=== PATIENT | female | born 1985 | race Caucasian/White ===

== ENCOUNTER 2017-10-23 08:54 | Inpatient (IN) | payer OTHER ==
[~2017-10-23] VITALS: Ht 170.2 cm; Wt 83.8 kg
[~2017-10-23 08:54] MED LIST: ACET1TAB40 PO; CLIN-73 PO; IBUP-1542 PO
[2017-10-23 09:06] VITALS: Ht 170.2 cm; Wt 83.8 kg
[2017-10-23 09:07] VITALS: BP 135/82; PULSE 83; RESP 18
--- NOTE | 2017-10-23 09:20 | TRIAGE ---
OB Triage Datetime Report Generated by CPN: 10/23/2017 09:19 Datetime: 10/23/2017 09:10 Vaginal Exam Dilatation (cms): 3.0 Effacement (%): 80 Station: -2 Exam By: [facility] Membrane Status: Ruptured Membranes Rupture Method: Spontaneous Amniotic Fluid Color: Clear Amniotic Fluid Amount: Moderate Amniotic Fluid Odor: None Vaginal Bleeding: None Nitrazine: Positive Cervix, Consistency: Soft Cervix, Position: Midposition Datetime: 10/23/2017 09:04 Assessment Type: Triage Maternal Assessment Level of Consciousness: Fully Conscious DTR's/Clonus: DTRs 2+; No Clonus Headache: Denies Blurred Vision: No Respiratory Effort: Unlabored; Regular Rhythm; Equal Expansion Breath Sounds, Left: Clear and Equal Breath Sounds, Right: Clear and Equal Nausea/Vomiting: Denies RUQ Epigastric Pain: Denies Lower Extremities Edema: None Degree: None Upper Extremities Edema: None Degree: None Facial Edema: None Fall Risk Assessment History of Falling: (0) No Secondary Diagnosis: (0) No Ambulatory Aid: (0) Bedrest/Nurse Assist IV Therapy: (0) No Gait: (0) Normal/Bedrest/Immobile Mental Status: (0) Oriented to Own Ability Fall Score: 0 Fall Risk Score Definition: No Risk: No action required Datetime: 10/23/2017 09:03 Time of Arrival: 10/23/2017 08:51 EGA: 40.3 Arrived By: Ambulatory Arrived From: Home Chief Complaint: PT HERE C/O SROM SINCE 0650 Movement: Present Contractions: Irregular Rupture of Membranes: Unsure Vaginal Bleeding: None Vaginal Discharge: Denies Recent Sexual Intercouse: Denies Abdominal Trauma: Not Applicable Patient Complaints: Contractions; Cramping; Back Pain Time Provider Notified: 10/23/2017 09:15 Provider Notified: LEANDRA Initial Plan: EFM/SVE Datetime: 10/23/2017 08:59 Labor Evaluation Monitor Mode: External Heart Rate Monitor Mode: External US
[2017-10-23] MEDS ORDERED: CARBOPROST 250 MCG INJ IM PRN ×2 (09:30→17:30)
[2017-10-23] MEDS ORDERED: LACTATED RINGER'S 1,000 ML IV PRN (09:30)
[2017-10-23] MEDS ORDERED: BUTORPHANOL 2 MG INJ IV PRN (09:30)
[2017-10-23] MEDS ORDERED: IBUPROFEN 600 MG TAB PO PRN (09:30)
[2017-10-23] MEDS ORDERED: OXYTOCIN 30 UNITS/LR 500 ML IV SCH ×2 (09:30)
[2017-10-23] MEDS ORDERED: LIDOCAINE 1% (MPF) 30 ML INJ INJ PRN (09:30)
[2017-10-23] MEDS ORDERED: METHYLERGONOVINE 0.2 MG INJ IM PRN ×2 (09:30→17:30)
[2017-10-23] MEDS ORDERED: MISOPROSTOL 200 MCG TAB PR PRN ×2 (09:30→17:30)
[2017-10-23] MEDS ORDERED: OXYTOCIN 30 UNITS/LR 500 ML IV PRN ×2 (09:30→17:30)
[2017-10-23] MEDS: LACTATED RINGER'S 1,000 ML IV SCH ×2 (10:35→11:55)
[2017-10-23 10:40] LABS: BASOPHILS % 0.4 % (0.0-2.0); EOSINOPHILS % 0.2 % (0.0-7.0); HEMATOCRIT 33.5 % (37.0-47.0); HEMOGLOBIN 10.9 g/dl (12.0-16.0); LYMPHOCYTES # 1.7 10^3/ul (0.8-2.9); LYMPHOCYTES % 17.6 % (15.0-51.0); MEAN CORPUSCULAR HEMOGLOBIN 28.6 pg (29.0-33.0); MEAN CORPUSCULAR HGB CONC 32.5 g/dl (32.0-37.0); MEAN CORPUSCULAR VOLUME 87.9 fl (82.0-101.0); MEAN PLATELET VOLUME 10.2 fl (7.4-10.4); MONOCYTE # 0.7 10^3/ul (0.3-0.9); MONOCYTES % 7.3 % (0.0-11.0); NEUTROPHIL # 7.2 10^3/ul (1.6-7.5); NEUTROPHILS % 74.2 % (39.0-77.0); PLATELET COUNT 407 10^3/UL (140-415); RED BLOOD COUNT 3.81 10^6/ul (4.20-5.40); RED CELL DISTRIBUTION WIDTH 13.2 % (11.5-14.5); WHITE BLOOD COUNT 9.6 10^3/ul (4.8-10.8)
[2017-10-23 11:00] LABS: INR 0.91; PROTIME 12.2 Sec (12.2-14.2)
[2017-10-23 11:01] LABS: PARTIAL THROMBOPLASTIN TIME 28.2 Sec (25.0-35.0)
[2017-10-23] MEDS ORDERED: FENTAnyl 2MCG/ML-ROPIV 0.2% 100 ML ONE (11:52)
[2017-10-23] MEDS ORDERED: EPHEDrine SULFATE 50 MG/5 ML SYG IV PRN (12:30)
[2017-10-23] MEDS ORDERED: FENTAnyl 2MCG/ML-ROPIV 0.2% 100 ML BAG EPI SCH (12:30)
[2017-10-23] MEDS ORDERED: DIPHENHYDRAMINE 50 MG INJ IV PRN (12:30)
[2017-10-23] MEDS ORDERED: ONDANSETRON 4 MG INJ IV PRN (12:30)
[2017-10-23] MEDS ORDERED: NALOXONE (0.4 MG/ML) INJ IV PRN (12:30)
--- NOTE | 2017-10-23 12:43 | HP ---
Date/Time of Note Date/Time of Note DATE: 10/23/17 TIME: 12:34 OB - History Hx of Present Free Text/Dictation 32 y.o [id number] came in labor after SROM at 0650 VE 3/-2 had unevenful care admitted for expectant management Chief Complaint: srom with uc's Estimated Due Date: Oct 20, 2017 : 4 Para: 3 Spontaneous : 0 Therapeutic : 0 Care: Good Care Ultrasounds: Normal mid trimester US Obstetrical Complications: None Medical Complications: None Past Family/Social History * Past Medical, Surgical, Family and Obstetric Histories reviewed from chart. Blood Type: A+ Rubella: immune RPR/VDRL: Negative GBS Status: Negative HBsAG: Negative OB Admission Exam Vital Signs Vital Signs Vital Signs Date Time Temp Pulse Resp B/P Pulse Ox O2 Delivery O2 Flow Rate FiO2 10/23/17 09:07 98.0 83 18 135/82 95 Room Air Physical Exam HEENT: WNL Heart: Rhythm Normal Lungs: Clear, Equal Abdomen: WNL Extremities: Normal Reflexes: Normal Cervical Dilatation: 3cm Effacement: Other (80%) Station: -2 Membranes: Ruptured Amniotic Fluid: Clear Heart Rate: 130's Accelerations: Accelerations Present Decelerations: No Decelerations Varibility: Moderate Contractions on Admission: < 5 Minutes Apart Intensity: Mild Last 72 hours Lab Results CBC & BMP 10/23/17 10:10 OB Assessment/Plan Reason for admission: rupture of membranes Other Assessment: IUP 40w3d in labor with SROM Plan: Expectant Management Other plan: poss augmentation CHAIM MOBLEY MD Oct 23, 2017 12:43
[2017-10-23 12:50] LABS: ALBUMIN 3.5 g/dl (3.3-4.9); ALBUMIN/GLOBULIN RATIO 1.02; BILIRUBIN,INDIRECT 0.3 mg/dl (0-1.1); BILIRUBIN,TOTAL 0.3 mg/dl (0.2-1.3); CALCIUM 8.6 mg/dl (8.4-10.2); CREATININE 0.61 mg/dl (0.44-1.00); POTASSIUM 4.1 mmol/L (3.5-5.1); TOTAL PROTEIN 6.9 g/dl (6.1-8.1)
[2017-10-23] MEDS ORDERED: PREN-6 PO (14:47)
[2017-10-23 15:22] LABS: ADD UMIC NO; UR ASCORBIC ACID NEGATIVE (NEGATIVE); UR BILIRUBIN (Dip) NEGATIVE (NEGATIVE); UR BLOOD (Dip) NEGATIVE (NEGATIVE); UR CLARITY CLEAR (CLEAR); UR COLOR YELLOW (YELLOW); UR GLUCOSE (Dip) NEGATIVE (NEGATIVE); UR KETONES (Dip) NEGATIVE (NEGATIVE); UR LEUKOCYTE ESTERASE (Dip) NEGATIVE Leu/ul (NEGATIVE); UR NITRITE (Dip) NEGATIVE (NEGATIVE); UR SPECIFIC GRAVITY (Dip) 1.015 (1.003-1.030); UR TOTAL PROTEIN (Dip) NEGATIVE (NEGATIVE); UR UROBILINOGEN (Dip) NEGATIVE (NEGATIVE)
--- NOTE | 2017-10-23 16:08 | LDN ---
Date/Time of Note Date/Time of Note DATE: 10/23/17 TIME: 16:05 Delivery Summary Weeks of Gestation 40w3d Placenta Delivered: Spontaneously Meconium: none Episiotomy: No Perineal laceration: 1 Laceration repair: 000ch gut Anesthesia type: Epidural Estimated blood loss: 100 Sponge & Needle done & correct: Yes All needle counts correct: Yes Any foreign bodies felt in the: No Problems: Infant Delivery Information Sex Infant Sex: male Apgars 1 Minute: 9 5 Minute: 9 Suctioning Nose & mouth suctioned at vilma: Yes Delee suction performed: No Umbilical Cord Umbilical cord with: 3 Vessels Cord presentations: no nuchal cord Cord Blood was obtained: Yes Mother & Baby Disposition Disposition Mom & Baby to Maternity; Good: Yes Mom transferred to: Other Baby to NICU: No () CHAIM MOBLEY MD Oct 23, 2017 16:08
[2017-10-23] MEDS ORDERED: ZOLPIDEM 5 MG TAB PO PRN (17:30)
[2017-10-23] MEDS ORDERED: WITCH HAZEL/GLYCERIN PAD PR PRN (17:30)
[2017-10-23] MEDS ORDERED: LANOLIN 7 GM TUBE TOP PRN (17:30)
[2017-10-23] MEDS ORDERED: OXYCODONE/ASPIRIN (4.88/325) TAB PO PRN ×2 (17:30)
[2017-10-23] MEDS ORDERED: BENZOCAINE 20% 56 ML SPRAY TOP PRN (17:30)
[2017-10-23 17:40] VITALS: BP 125/67; PULSE 76; RESP 18
[2017-10-23] MEDS: IBUPROFEN 600 MG TAB PO SCH (18:30)
[2017-10-23] MEDS: SENNA/DOCUSATE NA (8.6MG/50MG) TAB PO SCH (20:49)
[2017-10-23 21:49] VITALS: BP 117/64; RESP 18
[2017-10-24] VITALS: PULSE 69; RESP 18
[2017-10-24] MEDS: IBUPROFEN 600 MG TAB PO SCH ×4 (00:08→17:33)
[2017-10-24 04:30] VITALS: BP 109/65; PULSE 68; RESP 18
[2017-10-24 08:30] VITALS: BP 121/58; PULSE 74; RESP 18
[2017-10-24 09:01] LABS: BASOPHILS % 0.2 % (0.0-2.0); EOSINOPHILS # 0.1 10^3/ul (0.0-0.5); EOSINOPHILS % 0.6 % (0.0-7.0); HEMATOCRIT 29.3 % (37.0-47.0); HEMOGLOBIN 9.8 g/dl (12.0-16.0); LYMPHOCYTES # 1.9 10^3/ul (0.8-2.9); MEAN CORPUSCULAR HEMOGLOBIN 29.3 pg (29.0-33.0); MEAN CORPUSCULAR HGB CONC 33.4 g/dl (32.0-37.0); MEAN CORPUSCULAR VOLUME 87.5 fl (82.0-101.0); MEAN PLATELET VOLUME 10.4 fl (7.4-10.4); MONOCYTE # 0.8 10^3/ul (0.3-0.9); MONOCYTES % 8.1 % (0.0-11.0); NEUTROPHIL # 6.6 10^3/ul (1.6-7.5); NEUTROPHILS % 70.7 % (39.0-77.0); PLATELET COUNT 340 10^3/UL (140-415); RED BLOOD COUNT 3.35 10^6/ul (4.20-5.40); RED CELL DISTRIBUTION WIDTH 13.1 % (11.5-14.5); WHITE BLOOD COUNT 9.4 10^3/ul (4.8-10.8)
[2017-10-24] MEDS: SENNA/DOCUSATE NA (8.6MG/50MG) TAB PO SCH ×2 (10:33→21:09)
[2017-10-24 16:00] VITALS: BP 126/81; PULSE 69; RESP 16
[2017-10-24 19:55] VITALS: BP 105/66; PULSE 72; RESP 18
--- NOTE | 2017-10-24 22:50 | PN ---
Date/Time of Note Date/Time of Note DATE: 10/24/17 TIME: 22:49 OB Subjective Subjective Subjective no c/o no bm OB Objective Objective Objective vss afebrile fundus firm lochia min calf neg for tenderness OB Assessment/Plan Other Assessment: stable Other plan: d/s home in am CHAIM MOBLEY MD Oct 24, 2017 22:50
[2017-10-25] MEDS: IBUPROFEN 600 MG TAB PO SCH ×3 (00:14→12:09)
[2017-10-25 04:05] VITALS: BP 124/80; PULSE 61; RESP 16
--- NOTE | 2017-10-25 05:37 | PD.PPDC ---
MANAGER PEST Discharge Instruction Diagnosis Final Diagnosis: s/p normal vaginal delivery Condition Patient Condition: Stable Diet Diet: Resume Regular Diet Activity/Restrictions Activity: May Shower Restrictions: No Lifting No Sexual Activity Nothing in the Vagina No [place] No Tampons, douche Follow-up Follow-up with Physician: 6, Week/Weeks Return to clinic for CAMPAIGN SPECIALIST Instructions: Fever greater than 101 Chills Worsening abdominal pain Excessive Vaginal Bleeding More than 2 pads per hour Unable to tolerate diet OB Instructions: Breast Tenderness Depression Blurried Vision Headache CHAIM MOBLEY MD Oct 25, 2017 05:37
--- NOTE | 2017-10-25 06:24 | DS ---
Date/Time of Note Date/Time of Note DATE: 10/25/17 TIME: 06:22 Obstetrical Discharge Record Final Diagnosis Final Diagnosis: Term delivered Vaginal Delivery Obstetrical Delivery: Spontaneous, Laceration, Repaired Complications Augmentation: No Induction: No Rupture of Membranes: No Condition on Discharge Physical Assessment Last Vitals: vss afebrile Voiding: Yes Bowel Movement: Yes Breast: Soft, non-tender Fundus: Firm Abdomen and Incision: n/a Episiotomy: n/a Calf Tenderness: No Patient Condition: Stable CHAIM MOBLEY MD Oct 25, 2017 06:24
[2017-10-25 07:45] VITALS: BP 121/76; PULSE 72; RESP 19
[2017-10-25] MEDS ORDERED: DIPHTH/TET/ACEL PERTUSS (ADULT) 0.5 ML VIAL IM* ONE (09:00)
[2017-10-25] MEDS: SENNA/DOCUSATE NA (8.6MG/50MG) TAB PO SCH (09:00)
== END 2017-10-25 13:30 | disposition home or self-care (01) | DRG 775 ==
LOC: OBT 08:54 → L-D 08:55 → OBT 09:40 → PP1 17:39
PROVIDERS: ADMIT Obstetrics & Gynecology; ATTEND Obstetrics & Gynecology
PROC: 10E0XZZ Delivery of Products of Conception, External Approach (ICD-10-PCS; principal; 2017-10-23)
PROC: 3E033VJ Introduction of Other Hormone into Peripheral Vein, Percutaneous Approach (ICD-10-PCS; 2017-10-23)
DX: O48.0 Post-term pregnancy (principal); Z37.0 Single live birth; Z3A.40 40 weeks gestation of pregnancy
CPT/HCPCS: 80053; 81003; 84560; 85025; 85384; 85610; 85730; 86592; 86900; 86901; 90715; G0463; J3010; J7120

== ENCOUNTER 2018-09-29 14:38 | Emergency (ER) | END 2018-09-29 16:21 | disposition home or self-care (01) ==

== ENCOUNTER 2019-08-06 00:23 | Inpatient (IN) | payer OTHER ==
[~2019-08-06] VITALS: Ht 166.4 cm; Wt 87.4 kg
[~2019-08-06 00:23] MED LIST changes: -ACET1TAB40 PO; +AMOX500C2 PO; +CEPH-443 PO; -CLIN-73 PO; +HYDR-4011 PO; +PREN-6 PO; +SULF1TAB31 PO
[2019-08-06 01:29] VITALS: BP 134/73; PULSE 15; RESP 15
[2019-08-06] MEDS ORDERED: LACTATED RINGER'S 1,000 ML IV PRN (01:32)
[2019-08-06] MEDS ORDERED: OXYTOCIN 30 UNITS/LR 500 ML IV SCH ×3 (02:00→05:40)
[2019-08-06] MEDS ORDERED: OXYTOCIN 30 UNITS/LR 500 ML IV PRN ×2 (02:00→06:00)
[2019-08-06] MEDS ORDERED: MISOPROSTOL 200 MCG TAB PR PRN ×2 (02:00→06:00)
[2019-08-06] MEDS ORDERED: MINERAL OIL LIGHT 10 ML VIAL TOP PRN (02:00)
[2019-08-06] MEDS ORDERED: CARBOPROST 250 MCG INJ IM PRN ×2 (02:00→06:00)
[2019-08-06] MEDS ORDERED: IBUPROFEN 600 MG TAB PO PRN (02:00)
[2019-08-06] MEDS ORDERED: BUTORPHANOL 2 MG INJ IV PRN ×2 (02:00)
[2019-08-06] MEDS ORDERED: LIDOCAINE 1% (MPF) 30 ML INJ INJ PRN (02:00)
[2019-08-06] MEDS ORDERED: METHYLERGONOVINE 0.2 MG INJ IM PRN ×2 (02:00→06:00)
[2019-08-06] MEDS: LACTATED RINGER'S 1,000 ML IV SCH ×3 (03:08→17:32)
[2019-08-06] MEDS ORDERED: FENTAnyl 2MCG/ML-ROPIV 0.2% 100 ML ONE (03:22)
[2019-08-06] MEDS ORDERED: NALBUPHINE HCL (10 MG/1 ML) INJ IV PRN (04:00)
[2019-08-06] MEDS ORDERED: NALOXONE (0.4 MG/ML) INJ IV PRN (04:00)
[2019-08-06] MEDS ORDERED: ONDANSETRON 4 MG INJ IV PRN (04:00)
[2019-08-06] MEDS ORDERED: FENTAnyl 2MCG/ML-ROPIV 0.2% 100 ML BAG EPI SCH (04:00)
[2019-08-06] MEDS ORDERED: BENZOCAINE 20% 56 ML SPRAY TOP PRN (06:00)
[2019-08-06] MEDS ORDERED: DIBUCAINE 1% 30 GM OINT TOP PRN (06:00)
[2019-08-06] MEDS ORDERED: WITCH HAZEL/GLYCERIN PAD PR PRN (06:00)
[2019-08-06] MEDS ORDERED: LANOLIN HPA 1 PKT TOP PRN (06:00)
[2019-08-06] MEDS ORDERED: HYDROCODONE/APAP (5/325) TAB PO PRN ×2 (06:00)
[2019-08-06 07:20] VITALS: BP 127/68; PULSE 80; RESP 16
[2019-08-06] MEDS: IBUPROFEN 600 MG TAB PO SCH ×3 (12:00→18:11)
[2019-08-06 12:01] VITALS: BP 107/61; PULSE 74; RESP 16
[2019-08-06] MEDS: LACTATED RINGER'S 1,000 ML IV* SCH ×2 (13:40→21:40)
[2019-08-06 16:24] VITALS: BP 115/70; PULSE 79; RESP 16
[2019-08-06 19:35] VITALS: BP 118/64; PULSE 78; RESP 18
[2019-08-07] VITALS: BP 113/66; PULSE 74; RESP 18
[2019-08-07] MEDS: IBUPROFEN 600 MG TAB PO SCH ×5 (00:05→23:44)
[2019-08-07] MEDS: LACTATED RINGER'S 1,000 ML IV SCH ×2 (01:32→17:32)
[2019-08-07 04:25] VITALS: BP 113/66; PULSE 71; RESP 18
[2019-08-07] MEDS: LACTATED RINGER'S 1,000 ML IV* SCH ×2 (05:40→21:40)
[2019-08-07 08:00] VITALS: BP 129/77; PULSE 80; RESP 18
[2019-08-07 16:54] VITALS: BP 93/51; PULSE 87; RESP 14
[2019-08-07 19:40] VITALS: BP 115/63; PULSE 72; RESP 16
[2019-08-08 04:20] VITALS: BP 120/66; PULSE 66; RESP 18
[2019-08-08] MEDS: IBUPROFEN 600 MG TAB PO SCH (05:47)
[2019-08-08 08:31] VITALS: BP 121/85; PULSE 60; RESP 17
[2019-08-08] MEDS ORDERED: DIPHTH/TET/ACEL PERTUSS (ADULT) 0.5 ML VIAL IM* ONE (09:00)
[2019-08-08] MEDS ORDERED: VARICELLA VACCINE LIVE/PF 1,350 UNIT/0.5 ML ML SC* ONE (09:00)
[2019-08-08] MEDS ORDERED: MEASLES,MUMPS,RUBELLA VACCINE INJ SC* ONE (09:00)
== END 2019-08-08 11:44 | disposition home or self-care (01) | DRG 807 ==
LOC: OBT 00:23 → L-D 00:24 → OBT 01:25 → L-D 02:35 → PP1 07:34
PROVIDERS: ADMIT Obstetrics & Gynecology; ATTEND Obstetrics & Gynecology
PROC: 10E0XZZ Delivery of Products of Conception, External Approach (ICD-10-PCS; principal; 2019-08-06)
DX: O80 Encounter for full-term uncomplicated delivery (principal); Z37.0 Single live birth; Z3A.38 38 weeks gestation of pregnancy
CPT/HCPCS: 62322; 80053; 81003; 84560; 85025; 85610; 85730; 86592; 86850; 86900; 86901; 87340; 90716; G0463; J2590; J3010; J7120